=== PATIENT | female | born 1990 | race Caucasian/White ===

== ENCOUNTER 2019-01-04 16:03 | Outpatient (CLI) | payer BC ==
[~2019-01-04 16:03] MED LIST: Gadobenate Dimeglumine 529 MG/1 ML (20ML VIAL) ONE
--- NOTE | 2019-01-04 17:44 | MRI ---
EXAM: MRI of the brain without and with contrast HISTORY: Migraine headaches COMPARISON: None TECHNIQUE: Multiplanar multisequence MR images were obtained of the brain without and with IV contras t. FINDINGS: There are subtle scattered nonspecific foci of high FLAIR signal in the subcortical and periventricul ar white matter. No restricted diffusion. No abnormal enhancement. No hydronephrosis. No extra-axial fluid collection or intracranial hemorrhage. The expected flow voids are present. Corpus callosum, pituitary, and craniocervical junction are within normal limits. The calvarium and overlying soft tissues are unremarkable. The paranasal sinuses and mastoid air cells are well aerated. IMPRESSION: Nonspecific high FLAIR foci in the white matter. This can be seen with vasculitides, small vessel isc hemic disease, or demyelinating conditions.
== END 2019-01-04 16:04 | disposition home or self-care (01) ==
LOC: SCSMRI 16:03
PROVIDERS: ATTEND Nurse Practitioner Acute Care
DX: G43.109 Migraine with aura, not intractable, without status migrainosus (principal); R90.82 White matter disease, unspecified
CPT/HCPCS: 70553

== ENCOUNTER 2023-03-10 17:55 | Emergency (ER) | payer OTHER ==
[2023-03-10] MEDS ORDERED: Acetaminophen 500 MG TAB ONE (18:55)
[2023-03-10] MEDS ORDERED: Metoclopramide HCl 10 MG/2 ML VIAL ONE (18:56)
[2023-03-10] MEDS ORDERED: diphenhydrAMINE 50 MG/ML VIAL ONE (18:56)
[2023-03-10] MEDS ORDERED: Ketorolac Tromethamine 30 MG/ML VIAL ONE ×2 (18:56→18:57)
[2023-03-10] MEDS ORDERED: Magnesium 2 GM/50 ML BAG (IN WATER) ONE (19:02)
[2023-03-10 20:25] LABS: SARS-CoV-2 NAA Rapid Test Not Detected (NotDetected)
== END 2023-03-10 21:05 | disposition home or self-care (01) ==
LOC: ERS 17:55
DX: G43.909 Migraine, unspecified, not intractable, without status migrainosus (principal); Z20.822 Contact with and (suspected) exposure to COVID-19
CPT/HCPCS: 87081; 87430; 96365; 96375; J1200; J1885; J2765; J3475